=== PATIENT | male | born 1980 | race African-American/Black ===

== ENCOUNTER 2016-07-13 14:02 | Observation (INO) | payer SELFPAY ==
[~2016-07-13] VITALS: Ht 182.9 cm; Wt 99.8 kg
[2016-07-13 14:09] VITALS: BP 138/96
[2016-07-13] MEDS ORDERED: SODIUM CHLORIDE 0.9% 1,000 ML IVB ONE (14:32)
== END 2016-07-13 14:57 | disposition left against medical advice (07) | DRG 885 ==
LOC: ER 14:12 → OVERFLOW 14:34 → ER 14:45
PROVIDERS: ADMIT Emergency Medicine; ATTEND Emergency Medicine
DX: F20.9 Schizophrenia, unspecified (principal); R41.0 Disorientation, unspecified
CPT/HCPCS: 93005; 99285; G0378; J7030